=== PATIENT | male | born 1945 | race Caucasian/White ===

== ENCOUNTER 2018-05-18 18:09 | Emergency (ER) | payer MEDICARE ==
[~2018-05-18] VITALS: Ht 167.6 cm; Wt 65.8 kg
[2018-05-18] MEDS ORDERED: PRILOSEC 10MG C10 MG PO (18:38)
[2018-05-18] MEDS ORDERED: ZYRTEC10 MG PO (18:38)
[2018-05-18 21:02] VITALS: BP 142/67
== END 2018-05-18 21:03 | disposition short-term general hospital (02) ==
LOC: M.ERS 18:09
DX: S01.112A Laceration without foreign body of left eyelid and periocular area, initial encounter (principal); S05.02XA Injury of conjunctiva and corneal abrasion without foreign body, left eye, initial encounter; J45.909 Unspecified asthma, uncomplicated; E78.00 Pure hypercholesterolemia, unspecified; W22.8XXA Striking against or struck by other objects, initial encounter; Y93.89 Activity, other specified; Y92.89 Other specified places as the place of occurrence of the external cause; Y99.8 Other external cause status

== ENCOUNTER 2018-07-19 02:54 | Emergency (ER) | payer MEDICARE, OTHER ==
[~2018-07-19] VITALS: Ht 170.2 cm; Wt 65.8 kg
[~2018-07-19 02:54] MED LIST: PRILOSEC 10MG C10 MG PO; ZYRTEC10 MG PO
[2018-07-19] MEDS ORDERED: LIPITOR10 MG (03:13)
[2018-07-19 03:29] LABS: ABSOLUTE BASOPHILS 0.1 thou/uL (0.0-0.2); ABSOLUTE EOSINOPHILS 0.4 thou/uL (0.0-0.7); ABSOLUTE LYMPHOCYTES 2.2 thou/uL (0.8-5.3); ABSOLUTE MONOCYTES 0.6 thou/uL (0.0-1.2); ABSOLUTE NEUTROPHILS 5.4 thou/uL (1.6-8.1); BASOPHILS 1.4 %; EOSINOPHILS 4.9 %; HEMATOCRIT 45.8 % (42.0-52.0); HEMOGLOBIN 15.7 gm/dL (14.0-18.0); MCH 32.2 pg (26.0-34.0); MCHC 34.3 g/dL (28.0-37.0); MONOCYTES 7.2 %; MPV 8.5 fl. (7.2-11.1); NUCLEATED RBCS 0 /100WBC; PLATELET COUNT* 194 thou/uL (150-400); POLYS 61.5 %; RBC 4.87 mil/uL (4.50-6.00); RDW-CV 13.4 % (10.5-14.5); WBC 8.8 thou/uL (4.0-11.0)
[2018-07-19 03:45] LABS: CALCIUM 9.1 mg/dL (8.5-10.1); CREATININE 1.2 mg/dL (0.6-1.3); POTASSIUM 3.6 mmol/L (3.5-5.1)
[2018-07-19 03:55] LABS: ALBUMIN 3.8 g/dL (3.4-5.0); TOTAL BILIRUBIN 0.5 mg/dL (<0.1-1.0); TOTAL PROTEIN 7.5 g/dL (6.4-8.2)
[2018-07-19] MEDS ORDERED: NEBULIZER MISCELL (04:25)
[2018-07-19] MEDS ORDERED: IPRAT-ALBUT 0.5-3 ML PO (04:25)
[2018-07-19] MEDS ORDERED: PREDNISONE50 MG PO (04:25)
[2018-07-19] MEDS ORDERED: ZPAK PO (04:25)
[2018-07-19 04:49] VITALS: BP 122/60
== END 2018-07-19 04:50 | disposition home or self-care (01) ==
LOC: M.ERS 02:54
PROVIDERS: Personal Emergency Response Attendant
DX: J45.901 Unspecified asthma with (acute) exacerbation (principal); E78.00 Pure hypercholesterolemia, unspecified